=== PATIENT | female | born 1965 ===

== ENCOUNTER → 2024-03-09 | Outpatient (CLI) | payer OTHER ==
--- NOTE | 2024-03-09 14:38 | USB ---
Reason for Exam: Clinical finding. Patient History: 10/30/2005, Benign Core Biopsy on the right side. Mother had breast cancer, age 65. Risk Values: [place] 5 year model risk: 2.5%. NCI Lifetime model risk: 15.5%. Technique: Method: Targeted. Doppler: Color. Patient Position: Supine. Prior Study Comparison: 10/15/2005 Bilateral Diagnostic Mammogram, [facility]. 10/15/2005 Right Diagnostic Ultrasound, [facility]. Findings: The area of palpable concern of the right breast, the axilla of the right breast and the retroareolar of the right breast were scanned. Targeted ultrasound of the patient's palpable site upper outer quadrant 9:00 to 12:00 including scanning of the subareolar region and axilla. At the 11:00 position area of concern, a 10 m from the nipple, there is somewhat oval circumscribed area isoechoic to adjacent fat lobules measuring 3.8 x 2.0 x 4.2 cm. Findings most suggestive of a lipoma. No other solid or cystic lesion or axillary lymphadenopathy. Overall Assessment: Benign, BI-RAD 2 Management: Screening Mammogram of both breasts in 1 year. Surgical Consultation of the right breast. Sizable fat density lesion on both mammogram and ultrasound at the patient's palpable site measuring 3.8 cm corresponds well to a lipoma. However, given that this is palpable and only felt for the last 4 months, consider surgical consultation for either surveillance follow-up or excision if desired. A clinical breast exam by your physician is recommended on an annual basis and results should be correlated with mammographic findings. This exam should not preclude additional follow-up of suspicious palpable abnormalities. Results were given to the patient verbally at the time of exam. Electronically signed and approved by: Ricco Mena M.D. Radiologist
--- NOTE | 2024-03-10 07:31 | MM ---
Reason for Exam: Clinical finding. Last mammogram was performed 18 year(s) and 5 month(s) ago. Indicated Problems: Lump or thickening of the right side (size 15) for 4 Month(s). Patient History: 10/30/2005, Benign Core Biopsy on the right side. Risk Values: [place] 5 year model risk: 2.5%. NCI Lifetime model risk: 15.5%. Tissue Density: The breasts are almost entirely fatty. Findings: Analyzed By CAD. Palpable marker placed along the upper outer quadrant of the right breast. Underlying the palpable marker, there may be a subtle area of thinly circumscribed fat density measuring 2.8 cm. Otherwise, no significant mass, suspicious microcalcification, or other discrete abnormality is seen. Microclip right breast from prior biopsy. Overall Assessment: Incomplete: need additional imaging evaluation, BI-RAD 0 Management: Diagnostic Breast Ultrasound of the right breast. Electronically signed and approved by: Ricco Mena M.D. Radiologist
== END | disposition home or self-care (01) ==
LOC: RADMAMWWP 13:18
PROVIDERS: ATTEND Family Medicine
DX: R92.313 Mammographic fatty tissue density, bilateral breasts (principal); N63.11 Unspecified lump in the right breast, upper outer quadrant; Z80.3 Family history of malignant neoplasm of breast
CPT/HCPCS: 77066; 76642; G0279; 77062